=== PATIENT | female | born 1960 | race Caucasian/White ===

== ENCOUNTER 2020-01-01 15:13 | Outpatient (CLI) | payer BC, SELFPAY ==
[2020-01-03 14:17] LABS: SARS-CoV-2 RNA PCR Negative
== END 2020-01-01 15:14 | disposition home or self-care (01) ==
DX: R05 Cough (principal); Z20.828 Contact with and (suspected) exposure to other viral communicable diseases
CPT/HCPCS: 87635; C9803; U0003

== ENCOUNTER 2020-06-12 16:53 | Outpatient (CLI) | payer BC, SELFPAY | END 2020-06-12 16:54 | disposition home or self-care (01) | LOC: ANHCOVIDVC 16:53 | DX: Z23 Encounter for immunization (principal) | CPT/HCPCS: 0001A; 91300 ==

== ENCOUNTER 2020-07-03 16:58 | Outpatient (CLI) | payer BC, SELFPAY | END 2020-07-03 16:59 | disposition home or self-care (01) | LOC: ANHCOVIDVC 16:58 | DX: Z23 Encounter for immunization (principal) | CPT/HCPCS: 0002A; 91300 ==

== ENCOUNTER 2022-03-27 11:41 | Emergency (ER) | payer BC, SELFPAY ==
[2022-03-27 13:06] VITALS: BP 129/83; PULSE 83; RESP 16; TEMP 36.8; O2SAT 99
--- NOTE | 2022-03-27 13:39 | ED.GENADULT ---
HPI - General Adult General Chief complaint: Upper Respiratory Infection Stated complaint: Congestion,Sore Throat Time Seen by Provider: 03/27/22 13:39 Source: patient Mode of arrival: ambulatory Limitations: no limitations History of Present Illness HPI narrative: 7-year-old female patient presents to the [facility] with complaints of sore throat for the past week. Patient states her symptoms started as cold-like and flu-like symptoms with fevers, body aches and chills. Patient states also that has resolved but continues to have a hoarse voice and slight sore throat with cough. Patient denies any chest pain or shortness of breath at this time. Denies any abdominal pain nausea, vomiting and diarrhea. Patient states she has been taking [id number] Claritin, Corsitin, and Mucinex for her symptoms. Patient states she has been using a humidifier at night. Related Data Home Medications Medication Instructions Recorded Confirmed benazepril 20 mg tablet 20 mg PO DAILY 03/27/22 03/27/22 citalopram 20 mg tablet 20 mg PO DAILY 03/27/22 03/27/22 methimazole 5 mg tablet 5 mg PO DAILY 03/27/22 03/27/22 pantoprazole 20 mg tablet,delayed 20 mg PO DAILY 03/27/22 03/27/22 release propranolol 60 mg capsule,24 60 mg PO DAILY 03/27/22 03/27/22 hr,extended release Allergies Allergy/AdvReac Type Severity Reaction Status Date / Time morphine AdvReac Mild RASH Verified 03/27/22 13:26 Sulfa (Sulfonamide AdvReac Mild Hives Verified 03/27/22 13:26 Antibiotics) Review of Systems Review of Systems: CONSTITUTIONAL: Denies fever, chills, or sweats. EYES: Denies visual changes, redness, or discharge. ENT: positive rhinorrhea, congestion, Positive sore throat, denies otalgia. CARDIOVASCULAR: Denies chest pain, palpitations, or edema. RESPIRATORY: positive cough denies dyspnea. GASTROINTESTINAL: Denies abdominal pain, nausea, vomiting, or diarrhea. GENITOURINARY: Denies dysuria or hematuria. SKIN: Denies rash or itching. MUSCULOSKELETAL: Denies back pain, joint pain, or myalgia. NEUROLOGIC: Denies headache, numbness, or weakness. PSYCHIATRIC: Denies anxiety or depression. [facility] Past Medical History Medical History (Updated 03/27/22 @ 13:56 by CRYSTAL Colon) Arthritis Carpal tunnel syndrome Endometriosis Hypertension Migraines Surgical History Surgical History (Updated 03/27/22 @ 13:56 by CRYSTAL Colon) H/O: hysterectomy Family History Family History Sibling Hypertension Mother Family history of diabetes mellitus in first degree relative Family history of coronary artery disease Father Family history of lung cancer Family history of coronary artery disease Social History Social History Alcohol intake: current Comments At the time of my signature I agree with nursing past medical history, surgical, social, and family history. There is no relevant family history pertinent to the presenting complaint. Exam Narrative: GENERAL: Well-appearing, well-nourished, and in no acute distress. HEAD: Normocephalic, atraumatic. EYES: PERRLA and EOMI. ENT: Nares with erythema and edema noted bilateral, no rhinorrhea or epistaxis. Mucous membranes moist. posterior pharynx with postnasal drip present. No exudates present. No tonsil enlargement. Bilateral TMs are clear with no erythema or foreign bodies in the canal. NECK: Supple. No lymphadenopathy CHEST: Clear to auscultation. No respiratory distress. HEART: Regular rate and rhythm. No murmur heard. Normal peripheral pulses. ABDOMEN: Soft, nontender, nondistended, normal active bowel sounds. EXTREMITIES: Normal range of motion. No edema. SKIN: Warm, dry, no rash. NEURO: No focal deficits. Alert and oriented x3. Course Course Level of Care: Express Care Visit Vital Signs Vital signs: Vital Signs Temperature 36.8 C 03/27/22
== END 2022-03-27 14:00 | disposition home or self-care (01) ==
PROVIDERS: Emergency Provider Nurse Practitioner Family; PCP Emergency Medicine
DX: B34.9 Viral infection, unspecified (principal); J02.9 Acute pharyngitis, unspecified; M19.90 Unspecified osteoarthritis, unspecified site; I10 Essential (primary) hypertension; N80.9 Endometriosis, unspecified
CPT/HCPCS: 87081; 99213; G0463

== ENCOUNTER 2023-11-27 02:05 | Day surgery (SDC) | payer BC, SELFPAY ==
[2023-11-07 14:26] VITALS: BMI 30.8
[2023-11-27 08:13] VITALS: BP 122/67; PULSE 66; RESP 16; TEMP 36.3; O2SAT 100; BMI 30.2
--- NOTE | 2023-11-27 08:23 | WPDANESEPPF ---
Anes - Initial Pre Proc Eval Procedure: Operation Date: 11/27/23 09:30 Proposed Procedures p Colonoscopy - Micah Valentin MD Date/Time: 11/27/23 08:23 Surgeon: Micah Valentin MD Pre Op Diagnosis: Family hx. of colon CA Patient Data Age: 62 Gender: F Height: 1.65 m Weight: 84 kg Allergies Allergy/AdvReac Type Severity Reaction Status Date / Time morphine AdvReac Mild RASH Verified 11/27/23 08:20 Sulfa (Sulfonamide AdvReac Mild Hives Verified 11/27/23 08:20 Antibiotics) Home Medications Medication Instructions Recorded Confirmed Type benazepril 20 mg tablet 20 mg PO DAILY 03/27/22 11/27/23 History citalopram 20 mg tablet 20 mg PO DAILY 03/27/22 11/27/23 History methimazole 5 mg tablet 5 mg PO DAILY 03/27/22 11/27/23 History propranolol 60 mg capsule,24 60 mg PO DAILY 03/27/22 11/27/23 History hr,extended release meloxicam 7.5 mg tablet 7.5 mg PO DAILY 11/07/23 11/27/23 History Patient hx anesthesia problems: none Family hx anesthesia problems: none Results Review: All pre-operative results and documents have been reviewed as part of the pre-operative evaluation. [facility] Past Medical History Medical History (Updated 08/07/23 @ 13:34 by Rima Peck APRN) Arthritis Arthropathy of right knee Carpal tunnel syndrome Endometriosis Graves disease Hypertension Migraines Surgical History Surgical History (Updated 08/07/23 @ 13:34 by Rima Peck APRN) H/O: hysterectomy Family History Family History Sibling Hypertension Mother Family history of diabetes mellitus in first degree relative Family history of coronary artery disease Father Family history of lung cancer Family history of coronary artery disease Social History Social History Smoking status: Current some day smoker Tobacco type: cigarettes and e-cigarettes/vaping Alcohol intake: current Living arrangements: with family Spiritual care concerns: No Anes - Eval Final PreProcedure Day of Procedure 08/19/24 08:23 Patient weight: obese Heart: regular rate and rhythm Lungs: clear to auscultation Airway: Mallampati scale class II Neurological: alert and oriented Last oral intake: >/= 8 hours ASA classification: III Emergent: no Anesthetic plan: proceed Anesthesia type and monitoring: general GIVS and standard monitoring Results Review: All pre-operative results and documents have been reviewed as part of the pre-operative evaluation. Informed Consent: The patient's anesthetic plan and its attendant risks and benefits were discussed with the patient/family/POA. Questions were solicited and answers provided to the satisfaction of the patient/family/POA.
[2023-11-27] MEDS: LACTATED RINGERS 1,000 ML 150 ML IV CONT (08:32)
--- NOTE | 2023-11-27 09:15 | PM.HPGS ---
History of Present Illness History of Present Illness Consent: Risks, benefits, and alternatives have been discussed and questions answered. Patient agrees to proceed with procedure. Chief complaint: Family hx. of colon CA Narrative: Emma Acosta is a 62 year old female here for colonoscopy, last one 2014, mother had colon cancer Review of Systems Review of Systems: All systems reviewed & are unremarkable except as noted in HPI and below PMFSH Past Medical History Medical History (Updated 08/07/23 @ 13:34 by Rima Peck APRN) Arthritis Arthropathy of right knee Carpal tunnel syndrome Endometriosis Graves disease Hypertension Migraines Surgical History Surgical History (Updated 08/07/23 @ 13:34 by Rima Peck APRN) H/O: hysterectomy Family History Family History Sibling Hypertension Mother Family history of diabetes mellitus in first degree relative Family history of coronary artery disease Father Family history of lung cancer Family history of coronary artery disease Social History Social History Smoking status: Current some day smoker Tobacco type: cigarettes and e-cigarettes/vaping Alcohol intake: current Living arrangements: with family Spiritual care concerns: No Meds Home Medications and Allergies Home Medications Medication Instructions Recorded Confirmed Type benazepril 20 mg tablet 20 mg PO DAILY 03/27/22 11/27/23 History citalopram 20 mg tablet 20 mg PO DAILY 03/27/22 11/27/23 History methimazole 5 mg tablet 5 mg PO DAILY 03/27/22 11/27/23 History propranolol 60 mg capsule,24 60 mg PO DAILY 03/27/22 11/27/23 History hr,extended release meloxicam 7.5 mg tablet 7.5 mg PO DAILY 11/07/23 11/27/23 History Allergies Allergy/AdvReac Type Severity Reaction Status Date / Time morphine AdvReac Mild RASH Verified 11/27/23 08:20 Sulfa (Sulfonamide AdvReac Mild Hives Verified 11/27/23 08:20 Antibiotics) Vital Signs Vital Signs - 24 hr 11/27/23 08:13 Temperature 97.3 F L Pulse Rate 66 Respiratory Rate 16 Blood Pressure 122/67 Pulse Oximetry 100 Oxygen Delivery Room Air Exam Const: General: comfortable and no acute distress HENMT: Face/Nose/Sinus: Normal nares present Eyes: General: appearance normal, both eyes and all related structures Neck: Neck: no JVD Resp: Auscultation: clear to auscultation bilaterally Cardio: Rate: regular rate Rhythm: regular rhythm GI: Inspection: non-distended GI Palp: Yes Soft to palpation Skin: General skin exam: normal color Neuro: General: gait normal Speech: normal speech Extrem: General: normal to inspection Psych: Mental Status: mental status grossly normal Assessment and Plan Assessment and plan (1) Family hx of colon cancer requiring screening colonoscopy: Code(s): Z80.0 - Family history of malignant neoplasm of digestive organs Status: Acute Assessment and Plan: colonoscopy
[2023-11-27 09:39] VITALS: BP 84/44; PULSE 61; RESP 14; O2SAT 98
[2023-11-27 09:49] VITALS: BP 93/44; PULSE 58; RESP 18; O2SAT 98
[2023-11-27 09:59] VITALS: BP 108/55; PULSE 56; RESP 16; O2SAT 98
== END 2023-11-27 10:18 | disposition home or self-care (01) ==
PROVIDERS: PCP Emergency Medicine; Visit Provider Internal Medicine Gastroenterology
PROC: 0DJD8ZZ Inspection of Lower Intestinal Tract, Via Natural or Artificial Opening Endoscopic (ICD-10-PCS; CPT 45378; principal; 2023-11-27 09:30)
DX: Z12.11 Encounter for screening for malignant neoplasm of colon (principal); D12.3 Benign neoplasm of transverse colon; K62.1 Rectal polyp; K64.8 Other hemorrhoids; I10 Essential (primary) hypertension; N80.9 Endometriosis, unspecified; F17.210 Nicotine dependence, cigarettes, uncomplicated; E05.00 Thyrotoxicosis with diffuse goiter without thyrotoxic crisis or storm; E66.9 Obesity, unspecified; Z68.30 Body mass index [BMI] 30.0-30.9, adult; Z98.890 Other specified postprocedural states; Z80.1 Family history of malignant neoplasm of trachea, bronchus and lung; Z80.0 Family history of malignant neoplasm of digestive organs; Z82.49 Family history of ischemic heart disease and other diseases of the circulatory system
CPT/HCPCS: 45385; 88305; J2704; J7120